=== PATIENT | female | born 1970 | race Caucasian/White ===

== ENCOUNTER 2019-08-16 11:13 | Outpatient (CLI) | payer BC ==
--- NOTE | 2019-08-16 11:45 | RAD ---
EXAM: 4 views of the left elbow HISTORY: Elbow pain COMPARISON: None FINDINGS: No elbow effusion is seen. There is no evidence of acute fracture or dislocation. No signi ficant degenerative changes are seen. No soft tissue swelling is present. IMPRESSION: No evidence of acute osseous abnormality.
--- NOTE | 2019-08-16 11:56 | RAD ---
LEFT FOREARM 2 VIEWS: Date: 08/16/19 HISTORY: Injury and pain. FINDINGS: No fracture. No osseous abnormality. IMPRESSION: Unremarkable left forearm. POS: DWAINE
== END 2019-08-16 11:14 | disposition home or self-care (01) ==
LOC: BICRAD 11:13
PROVIDERS: ATTEND Family Medicine
DX: S50.02XA Contusion of left elbow, initial encounter (principal)

== ENCOUNTER 2019-09-07 14:56 | Outpatient (CLI) | payer BC ==
--- NOTE | 2019-09-07 15:32 | RAD ---
4 views lumbar spine: 09/07/2019 COMPARISON: None HISTORY: Low back pain with right hip/lower extremity radiculopathy FINDINGS: There is disc space narrowing and degenerative endplate change at the L5-S1 level. There is mild anterior osteophyte formation. There is facet hypertrophy bilaterally at L4-5 and L5-S1, right greater than left, most prominent at the lumbosacral junction. Lateral exam demonstrates no significant anterolisthesis on the neutral, flexion, or extension views. No acute osseous abnormality. IMPRESSION: Lower lumbar spine degenerative change as described above. Neutral, flexion, and extensio n lateral imaging demonstrates no anterolisthesis or retrolisthesis within the lumbar spine.
== END 2019-09-07 14:57 | disposition home or self-care (01) ==
LOC: TBSIIMAG 14:56
PROVIDERS: ATTEND Surgery
DX: M54.5 Low back pain (principal); M47.816 Spondylosis without myelopathy or radiculopathy, lumbar region
CPT/HCPCS: 72110

== ENCOUNTER 2019-09-28 16:38 | Outpatient (CLI) | payer BC ==
[2019-09-28 17:42] LABS: Hemoglobin 13.1 g/dL (12.0-16.0); Mean Corpuscular HGB CONC 32.7 g/dL (32.0-36.0); Mean Corpuscular Hemoglobin 28.9 pg (27.0-31.0); Mean Corpuscular Volume 88.3 fL (78.0-98.0); Mean Platelet Volume 7.2 fL (7.4-10.4); Platelet Count 237 thou/uL (130-400); RBC Distribution Width 11.6 % (11.5-14.5); Red Blood Cell (RBC) Count 4.55 mill/uL (4.20-5.40); White Blood Cell (WBC) Count 6.3 thou/uL (4.8-10.8)
[2019-09-28 17:52] LABS: PTT 31.9 SEC (22.9-36.1)
[2019-09-28 18:12] LABS: Anion Gap 9 mmol/L (10-20); BUN (Urea Nitrogen) 11 mg/dL (7.0-18.7); Calc. Creatinine Clearance 0 mL/min (70-130); Calcium 9.5 mg/dL (7.8-10.44); Carbon Dioxide 30 mmol/L (22-29); Chloride 104 mmol/L (98-107); Estimated GFR-MDRD 79; Glucose 89 mg/dL (70-105); Potassium 4.1 mmol/L (3.5-5.1); Sodium 139 mmol/L (136-145)
--- NOTE | 2019-09-30 17:45 | EKG ---
Test Reason : Blood Pressure : / mmHG Vent. Rate : 065 BPM Atrial Rate : 065 BPM P-R Int : 122 ms QRS Dur : 084 ms QT Int : 390 ms P-R-T Axes : 018 064 001 degrees QTc Int : 405 ms Normal sinus rhythm Low voltage QRS Cannot rule out Anterior infarct , age undetermined Abnormal ECG No previous ECGs available Confirmed by Kelvin TORIBIO ([id number]) on 09/30/2019 5:45:14 PM Referred By: MUSA Confirmed By:Kelvin TORIBIO
== END 2019-09-28 16:39 | disposition home or self-care (01) ==
LOC: LABBT 16:38
PROVIDERS: ATTEND Surgery
DX: Z01.812 Encounter for preprocedural laboratory examination (principal); M54.16 Radiculopathy, lumbar region; M48.062 Spinal stenosis, lumbar region with neurogenic claudication
CPT/HCPCS: 80048; 85027; 85610; 85730; 93005; 93010

== ENCOUNTER 2019-09-30 06:08 | Day surgery (SDC) | payer BC ==
[2019-09-28 17:23] VITALS: BMI 24.0
[2019-09-30] MEDS ORDERED: Thrombin 5000 UNITS/5 ML VIAL ONE (06:31)
[2019-09-30] MEDS ORDERED: Sodium Chloride 0.9% 10 ML ONE (06:31)
[2019-09-30] MEDS ORDERED: Fentanyl 250 MCG/5 ML VIAL ONE (06:48)
[2019-09-30] MEDS ORDERED: Midazolam HCl 2 mg/2 ml Vial ONE (07:08)
--- NOTE | 2019-09-30 09:51 | OP ---
DATE OF PROCEDURE: 09/30/2019 LASER SPECIALIST: Dedrick Castillo PA-C. PREPROCEDURE DIAGNOSES: 1. Low back and leg pain with lumbar stenosis. 2. Lumbar disk extrusion. POSTPROCEDURE DIAGNOSES: 1. Low back and leg pain with lumbar stenosis. 2. Lumbar disk extrusion. PROCEDURES PERFORMED: 1. L4-L5 and L5-S1 laminectomies, partial facetectomies, and foraminotomies. 2. Right L5-S1 transfacet approach for decompression of the exiting right L5 nerve root due to lateral and far-lateral disk extrusion. 3. Use of operative microscope for microdissection. DESCRIPTION OF PROCEDURE: After informed consent was obtained from the patient, the patient was brought to the OR. Proper patient, pause, and identification were carried out. She was placed under excellent general endotracheal anesthesia and positioned prone on the OR table. All appropriate points were padded. We identified the L4, L5, S1 dorsal spines and lamina. A linear yamilet was made over this region. This area was sterilely cleansed, prepared, and draped. Proper patient, pause, and identification were carried out. The wound was then opened in a combination of sharp, monopolar, and blunt dissection. The L4, L5, and S1 dorsal spines and lamina were exposed. We then performed localization and L4, L5, and S1 laminectomies, partial facetectomies, and foraminotomies were performed. We then brought the microscope in for a right L5-S1 transfacet approach for decompression of the exiting right L5 nerve root. We used the microscope for microdissection. We had excellent decompression following removal of disk material in the lateral portion of the foramen and copious irrigation occurred throughout as did maximizing hemostasis. The wound was then closed in anatomic layers following sprinkling of vancomycin powder. The patient was emerged from anesthesia. Job ID: [id number]
[2019-09-30] MEDS ORDERED: Glycopyrrolate 0.2 MG/ML 5 ML SYRINGE ONE (10:12)
[2019-09-30] MEDS ORDERED: Ondansetron PF 4 MG/2 ML Vial ONE (10:12)
[2019-09-30] MEDS ORDERED: Lidocaine 1% PF 5 ML VIAL ONE (10:12)
[2019-09-30] MEDS ORDERED: PROPOFOL 200 MG/20 ML VIAL ONE (10:12)
[2019-09-30] MEDS ORDERED: ePHEDrine/0.9% NaCl/PF SYRINGE 50 mg/10 ml ONE (10:12)
[2019-09-30] MEDS ORDERED: Dexamethasone 20 MG/5 ML VIAL ONE (10:12)
[2019-09-30] MEDS ORDERED: Rocuronium Bromide 10 MG/ML (10ML VIAL) ONE (10:12)
[2019-09-30] MEDS ORDERED: Milk Of Magnesia 30 ML UDCUP PO PRN (10:20)
[2019-09-30] MEDS ORDERED: Bisacodyl 10 MG SUPP PR PRN (10:20)
[2019-09-30] MEDS ORDERED: Ondansetron PF 4 MG/2 ML Vial IVP PRN (10:20)
[2019-09-30] MEDS ORDERED: Morphine 2 MG/ML SYRINGE SLOW IVP PRN (10:20)
[2019-09-30] MEDS ORDERED: Mag-Al 1200 mg/1200 mg/30 ML UDCUP PO PRN (10:20)
[2019-09-30] MEDS ORDERED: tiZANidine HCl 4 MG TAB PO PRN (10:20)
[2019-09-30] MEDS ORDERED: Fleet Enema 133 ML BOT PR PRN (10:20)
[2019-09-30] MEDS ORDERED: Acetaminophen 325 MG TAB PO PRN (10:20)
[2019-09-30] MEDS ORDERED: PROVENTIL INHALER 6.7 G (200 INHALATIONS) INH PRN (10:22)
[2019-09-30] MEDS ORDERED: Fentanyl 100 MCG/2 ML VIAL ONE ×2 (10:32→10:49)
[2019-09-30] MEDS ORDERED: Promethazine HCl 25 MG/ML VIAL SLOW IVP PRN (11:01)
[2019-09-30] MEDS ORDERED: Ondansetron HCl/PF 4 MG/2 ML Vial IVP PRN (11:01)
[2019-09-30] MEDS ORDERED: Promethazine HCl 25 MG/ML VIAL IM PRN (11:01)
[2019-09-30] MEDS: Sodium Chloride 0.9% 1,000 ML IV SCH ×2 (12:45→23:33)
[2019-09-30] MEDS: traMADol HCl 50 MG TAB PO PRN ×2 (14:32→20:27)
[2019-09-30] MEDS: CEFAZOLIN 2 GM in Premix Bag 1 BAG IVPB SCH ×2 (14:33→22:31)
[2019-09-30] MEDS ORDERED: Melatonin 3 MG TAB PO SCH (21:00)
[2019-09-30] MEDS ORDERED: Escitalopram Oxalate 10 mg Tablet PO SCH (21:00)
[2019-09-30] MEDS: HYDROcodone/Acetaminophen 7.5/325 mg Tablet PO PRN (22:34)
[2019-10-01] MEDS: traMADol HCl 50 MG TAB PO PRN ×2 (03:38→10:30)
[2019-10-01] MEDS: HYDROcodone/Acetaminophen 7.5/325 mg Tablet PO PRN (05:10)
[2019-10-01 07:39] VITALS: BP 101/65; TEMP 98.2
--- NOTE | 2019-10-02 03:08 | DIS ---
DATE OF ADMISSION: 09/30/2019 DATE OF DISCHARGE: 10/01/2019 The patient is a 49-year-old female, who is postoperative day #1, status post L4-S1 laminectomy and right L5-S1 far-lateral diskectomy. Following the surgery, she was transitioned to the Med/Surg floor. Her pain has been well-controlled with p.o. medications, and she is tolerating a regular diet, and voiding appropriately. She continues to have some right leg discomfort similar to before her surgery. She denies increased pain or new weakness. She is mobilizing appropriately. On exam this morning, the patient is awake, alert, in no acute distress. She has free active range of motion of all extremities. No focal motor weakness is appreciated. Her incision is clean, dry, and intact. We will plan to dismiss the patient to home. I have discussed home care and precautions. Dedrick Castillo has called in prescription for tramadol and Zanaflex to the [facility] in [place]. I have provided a script for gabapentin as well as the patient reports this has been beneficial to her in the past. The patient should follow up with Dr. Busch in 2 weeks. Job ID: [id number]
== END 2019-10-01 11:35 | disposition home or self-care (01) ==
LOC: SDC 06:08 → SURG A 11:59 → SDC 10-01 11:35
PROVIDERS: ATTEND Surgery
PROC: 01NB0ZZ Release Lumbar Nerve, Open Approach (ICD-10-PCS; principal; 2019-09-30)
PROC: 0ST20ZZ Resection of Lumbar Vertebral Disc, Open Approach (ICD-10-PCS; principal; 2019-09-30)
DX: M48.061 Spinal stenosis, lumbar region without neurogenic claudication (principal); M51.16 Intervertebral disc disorders with radiculopathy, lumbar region; J45.909 Unspecified asthma, uncomplicated; F17.200 Nicotine dependence, unspecified, uncomplicated; Z79.899 Other long term (current) drug therapy; Z88.5 Allergy status to narcotic agent
CPT/HCPCS: 76000; J0131; J0690; J1100; J2001; J2250; J2270; J2405; J2704; J3010; J3370; J3490

== ENCOUNTER 2020-09-11 15:57 | Outpatient (CLI) | payer BC ==
--- NOTE | 2020-09-11 16:36 | MMO ---
Bilateral MAMMO Bilat Screen [facility]. CLINICAL HISTORY: Patient is 50 years old and is seen for screening. The patient has no family history of breast cancer. The patient has no personal history of cancer. VIEWS: The views performed were: bilateral craniocaudal with tomosynthesis and bilateral mediolateral oblique with tomosynthesis. FILMS COMPARED: The present examination has been compared to prior imaging studies performed at [facility] on 08/26/2019, and at [facility] on 08/04/2018. This study has been interpreted with the assistance of computer-aided detection. MAMMOGRAM FINDINGS: The breasts are heterogeneously dense, which could obscure a lesion on mammography. There are no suspicious masses, suspicious calcifications, or new areas of architectural distortion. IMPRESSION: THERE IS NO MAMMOGRAPHIC EVIDENCE OF MALIGNANCY. A ROUTINE FOLLOW-UP MAMMOGRAM IN 1 YEAR IS RECOMMENDED. THE RESULTS OF THIS EXAM WERE SENT TO THE PATIENT. ACR BI-RADS Category 1 - Negative MAMMOGRAPHY NOTE: 1. A negative mammogram report should not delay a biopsy if a dominant of clinically suspicious mass is present. 2. Approximately 10% to 15% of breast cancers are not detected by mammography. 3. Adenosis and dense breasts may obscure an underlying neoplasm. Reported by: PARUL CHEW MD Electonically Signed: [id number]
== END 2020-09-11 15:58 | disposition home or self-care (01) ==
LOC: BICMAMMO 15:57
PROVIDERS: ATTEND Physician Assistant
DX: Z12.31 Encounter for screening mammogram for malignant neoplasm of breast (principal)
CPT/HCPCS: 77063; 77067

== ENCOUNTER 2022-04-11 16:12 | Outpatient (CLI) | payer BC | END 2022-04-11 16:13 | disposition home or self-care (01) | LOC: BICMAMMO 16:12 | PROVIDERS: ATTEND Physician Assistant | DX: Z12.31 Encounter for screening mammogram for malignant neoplasm of breast (principal); N63.20 Unspecified lump in the left breast, unspecified quadrant | CPT/HCPCS: 77063; 77067 ==

== ENCOUNTER 2022-04-15 10:32 | Outpatient (CLI) | payer BC | END 2022-04-15 10:33 | disposition home or self-care (01) | LOC: BICMAMMO 10:32 | PROVIDERS: ATTEND Physician Assistant | DX: N63.20 Unspecified lump in the left breast, unspecified quadrant (principal) | CPT/HCPCS: G0279 ==

== ENCOUNTER 2023-01-22 07:36 | Outpatient (CLI) | payer BC | END 2023-01-22 07:37 | disposition home or self-care (01) | LOC: BICULT 07:36 | PROVIDERS: ATTEND Internal Medicine Gastroenterology | DX: R10.13 Epigastric pain (principal); K21.9 Gastro-esophageal reflux disease without esophagitis; F17.210 Nicotine dependence, cigarettes, uncomplicated; F43.9 Reaction to severe stress, unspecified; K76.89 Other specified diseases of liver | CPT/HCPCS: 76705 ==

== ENCOUNTER 2023-02-03 16:28 | Outpatient (CLI) | payer BC | END 2023-02-03 16:29 | disposition home or self-care (01) | LOC: SCSRAD 16:28 | PROVIDERS: ATTEND Physician Assistant | DX: M25.561 Pain in right knee (principal); M25.461 Effusion, right knee ==

== ENCOUNTER 2023-02-13 07:41 | Outpatient (CLI) | payer BC | END 2023-02-13 07:42 | disposition home or self-care (01) | LOC: TBSIIMAG 07:41 | PROVIDERS: ATTEND Physician Assistant | DX: S89.91XD Unspecified injury of right lower leg, subsequent encounter (principal); R93.6 Abnormal findings on diagnostic imaging of limbs; S83.281D Other tear of lateral meniscus, current injury, right knee, subsequent encounter; S83.411D Sprain of medial collateral ligament of right knee, subsequent encounter; S83.421D Sprain of lateral collateral ligament of right knee, subsequent encounter; M25.461 Effusion, right knee; M94.8X6 Other specified disorders of cartilage, lower leg ==

== ENCOUNTER 2023-04-07 09:03 | Outpatient (CLI) | payer BC ==
[2023-04-07 10:21] LABS: #Eosinphils 0.6 10x3/uL (0.0-0.5); #Monocytes 0.5 10x3/uL (0.0-1.1); #Neutrophils 2.9 10x3/uL (1.5-8.4); %Basophils 0.7 % (0.0-2.0); %Eosinophils 11.2 % (0.0-6.0); %Lymphocytes 26.9 % (18.0-47.0); %Monocytes 8.3 % (0.0-10.0); %Neutrophils 52.7 % (40.0-75.0); Mean Corpuscular HGB CONC 32.9 g/dL (32.0-36.0); Mean Corpuscular Hemoglobin 28.5 pg (27.0-33.0); Mean Corpuscular Volume 86.7 fl (81.6-98.3); Platelet Count 262 10x3/uL (150-450); RBC Distribution Width 13.3 % (11.5-14.5); Red Blood Cell (RBC) Count 4.21 10x6/uL (3.90-5.03); White Blood Cell (WBC) Count 5.4 10x3/uL (3.5-10.5)
[2023-04-07 10:59] LABS: Anion Gap 15 mmol/L (10-20); BUN (Urea Nitrogen) 9 mg/dL (7.0-18.7); Calc. Creatinine Clearance 0 mL/min (70-130); Calcium 9.3 mg/dL (7.8-10.44); Carbon Dioxide 24 mmol/L (22-29); Chloride 108 mmol/L (98-107); Estimated GFR 99; Glucose 106 mg/dL (70-105); Potassium 3.6 mmol/L (3.5-5.1); Sodium 143 mmol/L (136-145)
== END 2023-04-07 09:04 | disposition home or self-care (01) ==
LOC: LABBT 09:03
PROVIDERS: ATTEND Orthopaedic Surgery
DX: Z01.818 Encounter for other preprocedural examination (principal); M23.203 Derangement of unspecified medial meniscus due to old tear or injury, right knee
CPT/HCPCS: 71046; 80048; 85025; 93005; 93010

== ENCOUNTER 2023-04-10 07:25 | Day surgery (SDC) | payer BC ==
[2023-04-07 09:34] VITALS: BMI 24.7
[2023-04-10] MEDS ORDERED: PROPOFOL 20 ML ONE (08:04)
[2023-04-10] MEDS ORDERED: Bupivacaine PF 0.5% 30 ML VIAL ONE (08:04)
[2023-04-10] MEDS ORDERED: Lidocaine 2% PF 5 ML VIAL ONE (08:04)
[2023-04-10] MEDS ORDERED: CEFAZOLIN 2 GM VIAL ONE (08:10)
[2023-04-10] MEDS ORDERED: Sodium Chloride 0.9% 100 ML ONE (08:10)
[2023-04-10] MEDS ORDERED: Ketorolac Tromethamine 30 MG/ML VIAL ONE (09:00)
[2023-04-10] MEDS ORDERED: Bupivacaine HCl 0.5%/Epinephrine 1:200,000/PF 30 ml Vial ONE (09:00)
[2023-04-10] MEDS ORDERED: Lidocaine 1% PF 5 ML VIAL ONE (09:00)
[2023-04-10] MEDS ORDERED: PROPOFOL 200 MG/20 ML VIAL ONE (09:00)
[2023-04-10] MEDS ORDERED: Ondansetron PF 4 MG/2 ML Vial ONE (09:00)
[2023-04-10] MEDS ORDERED: Dexamethasone 20 MG/5 ML VIAL ONE (09:00)
== END 2023-04-10 11:15 | disposition home or self-care (01) ==
LOC: SDC 07:25
PROVIDERS: ATTEND Orthopaedic Surgery
PROC: 0SBC4ZZ Excision of Right Knee Joint, Percutaneous Endoscopic Approach (ICD-10-PCS; principal; 2023-04-10)
DX: S83.281A Other tear of lateral meniscus, current injury, right knee, initial encounter (principal); M17.11 Unilateral primary osteoarthritis, right knee; J45.909 Unspecified asthma, uncomplicated; K21.9 Gastro-esophageal reflux disease without esophagitis; M19.90 Unspecified osteoarthritis, unspecified site; F32.A Depression, unspecified; F41.1 Generalized anxiety disorder; Z90.710 Acquired absence of both cervix and uterus; F17.210 Nicotine dependence, cigarettes, uncomplicated; Z88.5 Allergy status to narcotic agent; Z79.899 Other long term (current) drug therapy; X58.XXXA Exposure to other specified factors, initial encounter
CPT/HCPCS: J1100; J1885; J2001; J2405; J2704; J3490; S0020

== ENCOUNTER 2023-10-08 12:00 | Day surgery (SDC) | payer BC ==
[2023-10-07 17:24] VITALS: BMI 24.8
[2023-10-08 14:17] LABS: #Eosinphils 0.5 thou/uL (0.0-0.7); #Monocytes 0.5 thou/uL (0.11-0.59); #Neutrophils 3.5 thou/uL (1.40-6.50); %Basophils 0.5 % (0.0-1.0); %Eosinophils 7.2 % (0.0-10.0); %Lymphocytes 32.3 % (21.0-51.0); %Monocytes 7.8 % (0.0-10.0); Hematocrit 40.2 % (36.0-47.0); Hemoglobin 13.4 g/dL (12.0-16.0); Mean Corpuscular HGB CONC 33.3 g/dL (32.0-36.0); Mean Corpuscular Hemoglobin 29.6 pg (27.0-31.0); Mean Corpuscular Volume 88.7 fl (78.0-98.0); Mean Platelet Volume 10.5 fL (7.4-10.4); Platelet Count 291 10x3/uL (130-400); RBC Distribution Width 12.4 % (11.5-14.5); Red Blood Cell (RBC) Count 4.53 mill/uL (4.20-5.40); White Blood Cell (WBC) Count 6.7 10x3/uL (4.8-10.8)
[2023-10-08] MEDS ORDERED: fentaNYL 50 mcg/mL 1 mL Vial ONE ×2 (14:30→17:11)
[2023-10-08 14:40] LABS: ALT (SGPT) 9 U/L (8-55); AST (SGOT) 15 U/L (5-34); Albumin 4.4 g/dL (3.5-5.0); Alkaline Phosphatase 65 U/L (40-110); Anion Gap 12 mmol/L (10-20); BUN (Urea Nitrogen) 10 mg/dL (9.8-20.1); Bilirubin, Total 0.5 mg/dL (0.2-1.2); Calc. Creatinine Clearance 87 mL/min (70-130); Calcium 9.8 mg/dL (7.8-10.44); Carbon Dioxide 26 mmol/L (22-29); Chloride 107 mmol/L (98-107); Estimated GFR 93; Glucose 85 mg/dL (70-105); Protein, Total 7.4 g/dL (6.0-8.3); Sodium 141 mmol/L (136-145)
[2023-10-08] MEDS ORDERED: Bupivacaine 0.25% HCL 30 ML VIAL ONE (15:39)
[2023-10-08] MEDS ORDERED: EPINEPHrine 1 MG/ML VIAL ONE (15:39)
[2023-10-08] MEDS ORDERED: Lidocaine 1% PF 5 ML VIAL ONE ×2 (15:46→16:18)
[2023-10-08] MEDS ORDERED: Rocuronium Bromide 10 MG/ML (10ML VIAL) ONE ×3 (15:46→16:18)
[2023-10-08] MEDS ORDERED: Succinylcholine 200 MG/10 ml SYRINGE FS ONE ×2 (15:46→16:18)
[2023-10-08] MEDS ORDERED: fentaNYL PF 100 MCG/2 ML SYRINGE ONE (15:47)
[2023-10-08] MEDS ORDERED: Sodium Chloride 0.9% 100 ML ONE (15:58)
[2023-10-08] MEDS ORDERED: cefOXitin 2 GM VIAL ONE (15:58)
[2023-10-08] MEDS ORDERED: PROPOFOL 200 MG/20 ML VIAL ONE (16:18)
[2023-10-08] MEDS ORDERED: Ondansetron PF 4 MG/2 ML Vial ONE ×2 (16:18→16:35)
[2023-10-08] MEDS ORDERED: SUGAMMADEX SODIUM 200 MG/2 ML VIAL ONE (16:35)
[2023-10-08] MEDS ORDERED: Dexamethasone 4 mg/ml Vial ONE (16:36)
[2023-10-08] MEDS ORDERED: HYDROmorphone 0.5 MG/0.5 ML SYRINGE ONE (17:23)
[2023-10-08] MEDS ORDERED: HYDROcodone/Acetaminophen 5/325 mg Tablet ONE (17:55)
== END 2023-10-08 18:35 | disposition home or self-care (01) ==
LOC: SDC 12:00
PROVIDERS: ATTEND Surgery
PROC: 0DTJ4ZZ Resection of Appendix, Percutaneous Endoscopic Approach (ICD-10-PCS; principal; 2023-10-08)
DX: C18.1 Malignant neoplasm of appendix (principal); K35.80 Unspecified acute appendicitis; F17.210 Nicotine dependence, cigarettes, uncomplicated; Z79.899 Other long term (current) drug therapy
CPT/HCPCS: 36415; 71046; 80053; 85025; 88304; A4649; J0171; J0694; J1100; J1170; J2405; J2704; J3010; J3490; S0020

== ENCOUNTER 2023-10-10 18:54 | Emergency (ER) | payer BC ==
[~2023-10-10 18:54] MED LIST: Iopamidol 370 76% 100 ML VIAL ONE
[2023-10-10 19:40] LABS: #Basophils 0.1 thou/uL (0.0-0.2); #Eosinphils 0.5 thou/uL (0.0-0.7); #Monocytes 0.7 thou/uL (0.11-0.59); #Neutrophils 8.6 thou/uL (1.40-6.50); %Basophils 0.4 % (0.0-1.0); %Eosinophils 4.2 % (0.0-10.0); %Lymphocytes 20.7 % (21.0-51.0); %Monocytes 5.5 % (0.0-10.0); %Neutrophils 68.8 % (42.0-75.0); Hemoglobin 13.1 g/dL (12.0-16.0); Mean Corpuscular HGB CONC 33.6 g/dL (32.0-36.0); Mean Corpuscular Hemoglobin 29.6 pg (27.0-31.0); Mean Corpuscular Volume 88.2 fl (78.0-98.0); Mean Platelet Volume 10.4 fL (7.4-10.4); Platelet Count 286 10x3/uL (130-400); RBC Distribution Width 12.3 % (11.5-14.5); Red Blood Cell (RBC) Count 4.42 mill/uL (4.20-5.40); White Blood Cell (WBC) Count 12.6 10x3/uL (4.8-10.8)
[2023-10-10] MEDS ORDERED: Morphine 4 MG/ML VIAL ONE ×2 (19:43→20:26)
[2023-10-10] MEDS ORDERED: Ondansetron PF 4 MG/2 ML Vial ONE (19:43)
[2023-10-10 20:11] LABS: ALT (SGPT) 12 U/L (8-55); AST (SGOT) 19 U/L (5-34); Albumin 4.3 g/dL (3.5-5.0); Alkaline Phosphatase 61 U/L (40-110); Anion Gap 14 mmol/L (10-20); BUN (Urea Nitrogen) 12 mg/dL (9.8-20.1); Bilirubin, Total 0.3 mg/dL (0.2-1.2); Calc. Creatinine Clearance 0 mL/min (70-130); Calcium 9.8 mg/dL (7.8-10.44); Carbon Dioxide 27 mmol/L (22-29); Chloride 103 mmol/L (98-107); Estimated GFR 93; Globulin 2.8 g/dL (2.4-3.5); Glucose 107 mg/dL (70-105); Potassium 3.4 mmol/L (3.5-5.1); Protein, Total 7.1 g/dL (6.0-8.3); Sodium 141 mmol/L (136-145)
[2023-10-10] MEDS ORDERED: fentaNYL 50 mcg/mL 1 mL Vial ONE (20:29)
[2023-10-12] MEDS ORDERED: Ondansetron PF 4 MG/2 ML Vial IVP PRN (14:05)
[2023-10-12] MEDS ORDERED: Morphine 2 MG/ML VIAL SLOW IVP PRN (14:05)
[2023-10-12] MEDS ORDERED: Promethazine HCl 25 MG/ML VIAL IM PRN (14:05)
[2023-10-12] MEDS ORDERED: Morphine 4 MG/ML VIAL SLOW IVP PRN (14:05)
[2023-10-12] MEDS ORDERED: Ipratropium/Albuterol 3 ML NEB NEB PRN (14:05)
[2023-10-12] MEDS ORDERED: hydrALAZINE 20 MG/ML VIAL SLOW IVP PRN (14:05)
[2023-10-12] MEDS ORDERED: Fleet Saline Enema 133 ML BOT PR SCH (14:15)
[2023-10-12] MEDS ORDERED: Sodium Chloride 0.9% 1,000 ML IV SCH (14:15)
[2023-10-12] MEDS ORDERED: Ketorolac Tromethamine 30 MG/ML VIAL IVP SCH (18:00)
[2023-10-12] MEDS ORDERED: Famotidine/PF 20 mg/2ml Vial SLOW IVP SCH (21:00)
[2023-10-12] MEDS ORDERED: Famotidine 20 MG TAB PO SCH (21:00)
== END 2023-10-10 22:12 | disposition home or self-care (01) ==
LOC: ERS 18:54
DX: G89.18 Other acute postprocedural pain (principal); K59.00 Constipation, unspecified; F17.210 Nicotine dependence, cigarettes, uncomplicated
CPT/HCPCS: 36415; 74177; 80053; 83690; 85025; 93005; 96374; 96375; J2270; J2405; J3010; Q9967

== ENCOUNTER 2023-10-12 15:02 | Inpatient (IN) | payer BC ==
[2023-10-12 16:58] VITALS: BMI 24.0
[2023-10-12] MEDS ORDERED: Sodium Chloride 0.9% 500 ML IV SCH (17:30)
[2023-10-12] MEDS: Ketorolac Tromethamine 30 MG (1 mL) VIAL IVP PRN (18:13)
[2023-10-12] MEDS: D5 1/2 NS w/20 mEq KCL 1,000 ML IV SCH (18:14)
[2023-10-12] MEDS ORDERED: Fleet Saline Enema 133 ML BOT PR SCH (21:00)
[2023-10-13] MEDS: D5 1/2 NS w/20 mEq KCL 1,000 ML IV SCH ×4 (01:51→19:55)
[2023-10-13] MEDS: Ketorolac Tromethamine 30 MG (1 mL) VIAL IVP PRN ×3 (03:21→14:59)
[2023-10-13] MEDS: Ondansetron PF 4 MG/2 ML Vial IVP PRN ×3 (09:15→19:53)
[2023-10-13 12:23] LABS: #Eosinphils 0.1 thou/uL (0.0-0.7); #Monocytes 0.9 thou/uL (0.11-0.59); #Neutrophils 10.9 thou/uL (1.40-6.50); %Basophils 0.1 % (0.0-1.0); %Eosinophils 0.8 % (0.0-10.0); %Lymphocytes 9.1 % (21.0-51.0); %Neutrophils 82.6 % (42.0-75.0); Hematocrit 35.4 % (36.0-47.0); Hemoglobin 11.9 g/dL (12.0-16.0); Mean Corpuscular HGB CONC 33.6 g/dL (32.0-36.0); Mean Corpuscular Hemoglobin 29.5 pg (27.0-31.0); Mean Corpuscular Volume 87.8 fl (78.0-98.0); Mean Platelet Volume 10.8 fL (7.4-10.4); Platelet Count 263 10x3/uL (130-400); RBC Distribution Width 12.7 % (11.5-14.5); Red Blood Cell (RBC) Count 4.03 mill/uL (4.20-5.40); White Blood Cell (WBC) Count 13.1 10x3/uL (4.8-10.8)
[2023-10-13 12:59] LABS: ALT (SGPT) 10 U/L (8-55); AST (SGOT) 14 U/L (5-34); Albumin 3.3 g/dL (3.5-5.0); Alkaline Phosphatase 55 U/L (40-110); Anion Gap 10 mmol/L (10-20); BUN (Urea Nitrogen) 20 mg/dL (9.8-20.1); Bilirubin, Total 0.5 mg/dL (0.2-1.2); Calc. Creatinine Clearance 89 mL/min (70-130); Carbon Dioxide 29 mmol/L (22-29); Chloride 101 mmol/L (98-107); Estimated GFR 96; Globulin 2.7 g/dL (2.4-3.5); Glucose 128 mg/dL (70-105); Potassium 3.3 mmol/L (3.5-5.1); Sodium 137 mmol/L (136-145)
[2023-10-14] MEDS: Ketorolac Tromethamine 30 MG (1 mL) VIAL IVP PRN ×3 (02:28→20:08)
[2023-10-14] MEDS: D5 1/2 NS w/20 mEq KCL 1,000 ML IV SCH ×3 (02:30→21:58)
[2023-10-14] MEDS ORDERED: Promethazine HCl 25 MG in Sodium Chloride 0.9% 50 ML IVPB PRN (07:26)
[2023-10-14] MEDS ORDERED: GoLYTELY 4,000 ml Bottle PO SCH (07:30)
[2023-10-14] MEDS: Ondansetron PF 4 MG/2 ML Vial IVP PRN (09:51)
[2023-10-14] MEDS ORDERED: Bupivacaine 0.25% HCL 30 ML VIAL ONE (17:00)
[2023-10-15] MEDS: Ketorolac Tromethamine 30 MG (1 mL) VIAL IVP PRN ×2 (03:12→07:45)
[2023-10-15] MEDS: D5 1/2 NS w/20 mEq KCL 1,000 ML IV SCH ×2 (05:23→09:00)
[2023-10-15] MEDS: Ondansetron PF 4 MG/2 ML Vial IVP PRN (07:45)
[2023-10-15] MEDS ORDERED: cefOXitin 2 GM in Sodium Chloride 0.9% 100 ML IVPB SCH (07:45)
[2023-10-15] MEDS ORDERED: PROPOFOL 20 ML ONE (15:05)
[2023-10-15] MEDS ORDERED: fentaNYL PF 100 MCG/2 ML SYRINGE ONE ×3 (15:05→17:39)
[2023-10-15] MEDS ORDERED: Lidocaine 2% PF 5 ML VIAL ONE (15:05)
[2023-10-15] MEDS ORDERED: Rocuronium Bromide 10 MG/ML (10ML VIAL) ONE (15:05)
[2023-10-15] MEDS ORDERED: PHENYLEPHRINE-NS 100 MCG/ML 10 ML SYRINGE ONE (15:06)
[2023-10-15] MEDS ORDERED: Succinylcholine 200 MG/10 ml SYRINGE FS ONE (15:06)
[2023-10-15] MEDS ORDERED: HYDROmorphone 0.5 MG/0.5 ML SYRINGE ONE ×3 (15:13→18:24)
[2023-10-15] MEDS ORDERED: Bupivacaine PF 0.5% 30 ML VIAL ONE (15:13)
[2023-10-15] MEDS ORDERED: Sodium Chloride 0.9% 100 ML ONE (15:20)
[2023-10-15] MEDS ORDERED: cefOXitin 2 GM VIAL ONE (15:20)
[2023-10-15] MEDS ORDERED: Ondansetron PF 4 MG/2 ML Vial ONE (16:05)
[2023-10-15] MEDS ORDERED: Dexamethasone 20 MG/5 ML VIAL ONE (16:05)
[2023-10-15] MEDS ORDERED: Glycopyrrolate 0.2 MG/ML 5 ML SYRINGE ONE (16:38)
[2023-10-15] MEDS ORDERED: NEOSTIGMINE 3 MG/3 ML SYR 3 MG/3 ML SYRINGE ONE (16:38)
[2023-10-15] MEDS ORDERED: hydrALAZINE 20 MG/ML VIAL SLOW IVP PRN (17:15)
[2023-10-15] MEDS ORDERED: Promethazine HCl 25 MG/ML VIAL IM PRN ×3 (17:15→17:24)
[2023-10-15] MEDS ORDERED: Ondansetron PF 4 MG/2 ML Vial IVP PRN ×2 (17:15→17:24)
[2023-10-15] MEDS ORDERED: Ipratropium/Albuterol 3 ML NEB NEB PRN (17:15)
[2023-10-15] MEDS ORDERED: Ondansetron HCl/PF 4 MG/2 ML Vial IVP PRN (17:24)
[2023-10-15] MEDS ORDERED: diphenhydrAMINE 50 MG/ML VIAL IVP PRN (17:24)
[2023-10-15] MEDS ORDERED: Naloxone HCl 0.4 mg/ml Vial IV PRN (17:24)
[2023-10-15] MEDS ORDERED: diphenhydrAMINE 25 MG CAP PO PRN (17:24)
[2023-10-15] MEDS ORDERED: diphenhydrAMINE 50 MG/ML VIAL IM PRN (17:24)
[2023-10-15] MEDS ORDERED: fentaNYL 50 mcg/mL 1 mL Vial ONE ×2 (17:25→18:37)
[2023-10-15] MEDS ORDERED: Communication Order-Pharmacy FS SCH (17:30)
[2023-10-15] MEDS: Sodium Chloride 0.9% 1,000 ML IV SCH (18:11)
[2023-10-15] MEDS ORDERED: Ketorolac Tromethamine 30 MG (1 mL) VIAL ONE (18:24)
[2023-10-15] MEDS: Famotidine/PF 20 mg/2ml Vial SLOW IVP SCH (19:56)
[2023-10-15] MEDS: Famotidine 20 MG TAB PO SCH (19:59)
[2023-10-15] MEDS: cefOXitin 2 GM in Sodium Chloride 0.9% 100 ML IVPB SCH (22:52)
[2023-10-16] MEDS: D5 1/2 NS w/20 mEq KCL 1,000 ML IV SCH ×3 (01:34→16:38)
[2023-10-16] MEDS: Sodium Chloride 0.9% 1,000 ML IV SCH ×3 (02:20→18:39)
[2023-10-16] MEDS: cefOXitin 2 GM in Sodium Chloride 0.9% 100 ML IVPB SCH (05:52)
[2023-10-16 06:02] LABS: #Monocytes 0.9 thou/uL (0.11-0.59); #Neutrophils 5.9 thou/uL (1.40-6.50); %Basophils 0.1 % (0.0-1.0); %Lymphocytes 11.5 % (21.0-51.0); %Monocytes 11.3 % (0.0-10.0); %Neutrophils 76.6 % (42.0-75.0); Hematocrit 32.7 % (36.0-47.0); Hemoglobin 10.7 g/dL (12.0-16.0); Mean Corpuscular HGB CONC 32.7 g/dL (32.0-36.0); Mean Corpuscular Hemoglobin 29.8 pg (27.0-31.0); Mean Corpuscular Volume 91.1 fl (78.0-98.0); Mean Platelet Volume 10.5 fL (7.4-10.4); Platelet Count 279 10x3/uL (130-400); RBC Distribution Width 12.3 % (11.5-14.5); Red Blood Cell (RBC) Count 3.59 mill/uL (4.20-5.40); White Blood Cell (WBC) Count 7.7 10x3/uL (4.8-10.8)
[2023-10-16 06:23] LABS: Anion Gap 12 mmol/L (10-20); BUN (Urea Nitrogen) 9 mg/dL (9.8-20.1); Calc. Creatinine Clearance 117 mL/min (70-130); Calcium 8.3 mg/dL (7.8-10.44); Carbon Dioxide 21 mmol/L (22-29); Chloride 107 mmol/L (98-107); Estimated GFR 110; Glucose 103 mg/dL (70-105); Potassium 4.2 mmol/L (3.5-5.1); Sodium 136 mmol/L (136-145)
[2023-10-16] MEDS: Famotidine 20 MG TAB PO SCH ×2 (08:35→21:21)
[2023-10-16] MEDS: Famotidine/PF 20 mg/2ml Vial SLOW IVP SCH ×2 (08:38→21:19)
[2023-10-16] MEDS: Ketorolac Tromethamine 30 MG (1 mL) VIAL IVP PRN ×2 (13:03→18:39)
[2023-10-16] MEDS: FENTANYL 500 MCG/10 ML VIAL 2,000 MCG in Sodium Chloride 0.9% 60 ML IV PRN (13:43)
[2023-10-16] MEDS: Multivitamins, Adult 10 ML, TRACE ELEMENT CONCENTRATE 1 ML in D15W-AA 5% with Lytes 2,0... IV SCH (14:26)
[2023-10-17] MEDS: Ketorolac Tromethamine 30 MG (1 mL) VIAL IVP PRN ×3 (02:44→21:13)
[2023-10-17] MEDS: Sodium Chloride 0.9% 1,000 ML IV SCH ×2 (02:45→10:43)
[2023-10-17] MEDS: D5 1/2 NS w/20 mEq KCL 1,000 ML IV SCH ×2 (02:50→08:34)
[2023-10-17 07:18] LABS: #Eosinphils 0.3 thou/uL (0.0-0.7); #Monocytes 0.7 thou/uL (0.11-0.59); #Neutrophils 4.5 thou/uL (1.40-6.50); %Basophils 0.1 % (0.0-1.0); %Eosinophils 4.4 % (0.0-10.0); %Lymphocytes 18.6 % (21.0-51.0); %Monocytes 10.4 % (0.0-10.0); %Neutrophils 65.9 % (42.0-75.0); Hematocrit 27.6 % (36.0-47.0); Hemoglobin 9.3 g/dL (12.0-16.0); Mean Corpuscular HGB CONC 33.7 g/dL (32.0-36.0); Mean Corpuscular Hemoglobin 30.1 pg (27.0-31.0); Mean Corpuscular Volume 89.3 fl (78.0-98.0); Mean Platelet Volume 10.7 fL (7.4-10.4); Platelet Count 257 10x3/uL (130-400); RBC Distribution Width 12.6 % (11.5-14.5); Red Blood Cell (RBC) Count 3.09 mill/uL (4.20-5.40); White Blood Cell (WBC) Count 6.8 10x3/uL (4.8-10.8)
[2023-10-17 07:38] LABS: ALT (SGPT) 12 U/L (8-55); AST (SGOT) 18 U/L (5-34); Albumin 2.6 g/dL (3.5-5.0); Alkaline Phosphatase 39 U/L (40-110); Anion Gap 11 mmol/L (10-20); BUN (Urea Nitrogen) 10 mg/dL (9.8-20.1); Bilirubin, Total 0.5 mg/dL (0.2-1.2); Calc. Creatinine Clearance 121 mL/min (70-130); Carbon Dioxide 23 mmol/L (22-29); Chloride 105 mmol/L (98-107); Estimated GFR 111; Globulin 2.5 g/dL (2.4-3.5); Glucose 125 mg/dL (70-105); Potassium 3.4 mmol/L (3.5-5.1); Protein, Total 5.1 g/dL (6.0-8.3); Sodium 136 mmol/L (136-145)
[2023-10-17] MEDS: Famotidine 20 MG TAB PO SCH ×2 (08:34→21:17)
[2023-10-17] MEDS: Famotidine/PF 20 mg/2ml Vial SLOW IVP SCH ×2 (08:37→21:13)
[2023-10-17] MEDS: Multivitamins, Adult 10 ML, TRACE ELEMENT CONCENTRATE 1 ML in D15W-AA 5% with Lytes 2,0... IV SCH (16:23)
[2023-10-18] MEDS: FENTANYL 500 MCG/10 ML VIAL 2,000 MCG in Sodium Chloride 0.9% 60 ML IV PRN ×2 (00:12→23:56)
[2023-10-18] MEDS: Sodium Chloride 0.9% 1,000 ML IV SCH ×4 (03:30→20:03)
[2023-10-18 06:49] LABS: #Eosinphils 0.4 thou/uL (0.0-0.7); #Monocytes 0.6 thou/uL (0.11-0.59); #Neutrophils 6.7 thou/uL (1.40-6.50); %Basophils 0.1 % (0.0-1.0); %Eosinophils 4.7 % (0.0-10.0); %Monocytes 6.5 % (0.0-10.0); Hematocrit 31.7 % (36.0-47.0); Hemoglobin 10.6 g/dL (12.0-16.0); Mean Corpuscular HGB CONC 33.4 g/dL (32.0-36.0); Mean Corpuscular Hemoglobin 29.6 pg (27.0-31.0); Mean Corpuscular Volume 88.5 fl (78.0-98.0); Mean Platelet Volume 10.8 fL (7.4-10.4); Platelet Count 342 10x3/uL (130-400); RBC Distribution Width 12.5 % (11.5-14.5); Red Blood Cell (RBC) Count 3.58 mill/uL (4.20-5.40)
[2023-10-18 07:14] LABS: Anion Gap 12 mmol/L (10-20); BUN (Urea Nitrogen) 10 mg/dL (9.8-20.1); Calc. Creatinine Clearance 124 mL/min (70-130); Calcium 8.8 mg/dL (7.8-10.44); Carbon Dioxide 24 mmol/L (22-29); Cardiac Risk 5.6 (Less than 4.5); Chloride 103 mmol/L (98-107); Cholesterol 139 mg/dl (< 200 Desired); Estimated GFR 111; Glucose 117 mg/dL (70-105); HDL Cholesterol 25 mg/dL (>60 Neg Risk); LDL Cholesterol, Calculated 89 mg/dL; Magnesium 1.8 mg/dL (1.6-2.6); Phosphorus 3.5 mg/dL (2.3-4.7); Potassium 3.6 mmol/L (3.5-5.1); Sodium 135 mmol/L (136-145); Triglycerides 123 mg/dL (Less than 150)
[2023-10-18] MEDS: Famotidine/PF 20 mg/2ml Vial SLOW IVP SCH ×2 (08:10→20:02)
[2023-10-18] MEDS: Famotidine 20 MG TAB PO SCH ×2 (08:10→20:11)
[2023-10-18] MEDS: Ketorolac Tromethamine 30 MG (1 mL) VIAL IVP PRN ×3 (08:10→20:02)
[2023-10-18] MEDS: Multivitamins, Adult 10 ML, TRACE ELEMENT CONCENTRATE 1 ML in D15W-AA 5% with Lytes 2,0... IV SCH (14:39)
[2023-10-19] MEDS: Ketorolac Tromethamine 30 MG (1 mL) VIAL IVP PRN ×4 (02:21→20:23)
[2023-10-19 04:41] LABS: #Eosinphils 0.5 thou/uL (0.0-0.7); #Monocytes 0.8 thou/uL (0.11-0.59); #Neutrophils 5.8 thou/uL (1.40-6.50); %Basophils 0.2 % (0.0-1.0); %Eosinophils 5.6 % (0.0-10.0); %Monocytes 9.2 % (0.0-10.0); %Neutrophils 67.5 % (42.0-75.0); Hematocrit 30.6 % (36.0-47.0); Hemoglobin 10.5 g/dL (12.0-16.0); Mean Corpuscular HGB CONC 34.3 g/dL (32.0-36.0); Mean Corpuscular Hemoglobin 30.3 pg (27.0-31.0); Mean Corpuscular Volume 88.2 fl (78.0-98.0); Mean Platelet Volume 10.5 fL (7.4-10.4); Platelet Count 359 10x3/uL (130-400); RBC Distribution Width 12.5 % (11.5-14.5); Red Blood Cell (RBC) Count 3.47 mill/uL (4.20-5.40); White Blood Cell (WBC) Count 8.5 10x3/uL (4.8-10.8)
[2023-10-19 05:20] LABS: Phosphorus 3.7 mg/dL (2.3-4.7)
[2023-10-19 05:22] LABS: Anion Gap 12 mmol/L (10-20); BUN (Urea Nitrogen) 12 mg/dL (9.8-20.1); Calc. Creatinine Clearance 119 mL/min (70-130); Calcium 8.8 mg/dL (7.8-10.44); Carbon Dioxide 23 mmol/L (22-29); Chloride 104 mmol/L (98-107); Estimated GFR 110; Glucose 93 mg/dL (70-105); Magnesium 1.9 mg/dL (1.6-2.6); Potassium 3.7 mmol/L (3.5-5.1); Sodium 135 mmol/L (136-145)
[2023-10-19] MEDS: Sodium Chloride 0.9% 1,000 ML IV SCH ×2 (05:36→12:54)
[2023-10-19] MEDS: Famotidine/PF 20 mg/2ml Vial SLOW IVP SCH ×2 (08:10→20:23)
[2023-10-19] MEDS: Famotidine 20 MG TAB PO SCH (08:11)
[2023-10-19] MEDS: Multivitamins, Adult 10 ML, TRACE ELEMENT CONCENTRATE 1 ML in D15W-AA 5% with Lytes 2,0... IV SCH (16:39)
[2023-10-19] MEDS: FENTANYL 500 MCG/10 ML VIAL 2,000 MCG in Sodium Chloride 0.9% 60 ML IV PRN (20:23)
[2023-10-20] MEDS: Famotidine 20 MG TAB PO SCH ×3 (01:46→20:08)
[2023-10-20] MEDS: Sodium Chloride 0.9% 1,000 ML IV SCH ×3 (01:47→15:06)
[2023-10-20] MEDS: Ketorolac Tromethamine 30 MG (1 mL) VIAL IVP PRN ×2 (03:03→16:18)
[2023-10-20] MEDS: Ondansetron PF 4 MG/2 ML Vial IVP PRN (03:04)
[2023-10-20 07:07] LABS: #Eosinphils 0.5 thou/uL (0.0-0.7); #Monocytes 1.1 thou/uL (0.11-0.59); #Neutrophils 5.4 thou/uL (1.40-6.50); %Basophils 0.2 % (0.0-1.0); %Eosinophils 5.6 % (0.0-10.0); %Lymphocytes 18.6 % (21.0-51.0); %Monocytes 12.4 % (0.0-10.0); %Neutrophils 62.7 % (42.0-75.0); Mean Corpuscular HGB CONC 33.3 g/dL (32.0-36.0); Mean Corpuscular Hemoglobin 29.5 pg (27.0-31.0); Mean Corpuscular Volume 88.5 fl (78.0-98.0); Mean Platelet Volume 10.6 fL (7.4-10.4); Platelet Count 394 10x3/uL (130-400); RBC Distribution Width 12.4 % (11.5-14.5); Red Blood Cell (RBC) Count 3.39 mill/uL (4.20-5.40); White Blood Cell (WBC) Count 8.6 10x3/uL (4.8-10.8)
[2023-10-20 07:28] LABS: Phosphorus 3.9 mg/dL (2.3-4.7)
[2023-10-20 07:29] LABS: Anion Gap 11 mmol/L (10-20); BUN (Urea Nitrogen) 12 mg/dL (9.8-20.1); Calc. Creatinine Clearance 121 mL/min (70-130); Calcium 8.5 mg/dL (7.8-10.44); Carbon Dioxide 23 mmol/L (22-29); Chloride 105 mmol/L (98-107); Estimated GFR 111; Glucose 93 mg/dL (70-105); Magnesium 1.9 mg/dL (1.6-2.6); Potassium 4.1 mmol/L (3.5-5.1); Sodium 135 mmol/L (136-145)
[2023-10-20] MEDS: Famotidine/PF 20 mg/2ml Vial SLOW IVP SCH ×2 (08:51→20:08)
[2023-10-20] MEDS ORDERED: traMADol HCl 50 MG TAB PO PRN (09:14)
[2023-10-20] MEDS ORDERED: Fentanyl 100 MCG/2 ML VIAL SLOW IVP PRN (09:14)
[2023-10-20] MEDS: traMADol HCl 50 MG TAB PO PRN ×2 (10:49→18:37)
[2023-10-20] MEDS: fentaNYL 50 mcg/mL 1 mL Vial SLOW IVP PRN ×2 (13:19→20:08)
[2023-10-20] MEDS: Multivitamins, Adult 10 ML, TRACE ELEMENT CONCENTRATE 1 ML in D15W-AA 5% with Lytes 2,0... IV SCH (14:18)
[2023-10-21] MEDS: traMADol HCl 50 MG TAB PO PRN ×3 (00:09→15:50)
[2023-10-21] MEDS: fentaNYL 50 mcg/mL 1 mL Vial SLOW IVP PRN ×3 (00:13→10:21)
[2023-10-21] MEDS: Sodium Chloride 0.9% 1,000 ML IV SCH ×4 (02:45→22:38)
[2023-10-21 06:19] LABS: #Eosinphils 0.4 thou/uL (0.0-0.7); #Monocytes 1.4 thou/uL (0.11-0.59); #Neutrophils 5.3 thou/uL (1.40-6.50); %Basophils 0.2 % (0.0-1.0); %Eosinophils 4.1 % (0.0-10.0); %Lymphocytes 20.2 % (21.0-51.0); %Neutrophils 59.1 % (42.0-75.0); Hematocrit 22.7 % (36.0-47.0); Hemoglobin 7.6 g/dL (12.0-16.0); Mean Corpuscular HGB CONC 33.5 g/dL (32.0-36.0); Mean Corpuscular Hemoglobin 29.8 pg (27.0-31.0); Mean Platelet Volume 10.7 fL (7.4-10.4); Platelet Count 480 10x3/uL (130-400); RBC Distribution Width 12.7 % (11.5-14.5); Red Blood Cell (RBC) Count 2.55 mill/uL (4.20-5.40)
[2023-10-21 06:40] LABS: Anion Gap 11 mmol/L (10-20); BUN (Urea Nitrogen) 12 mg/dL (9.8-20.1); Calc. Creatinine Clearance 126 mL/min (70-130); Calcium 8.6 mg/dL (7.8-10.44); Carbon Dioxide 24 mmol/L (22-29); Chloride 102 mmol/L (98-107); Estimated GFR 112; Glucose 96 mg/dL (70-105); Magnesium 1.9 mg/dL (1.6-2.6); Phosphorus 3.7 mg/dL (2.3-4.7); Potassium 4.3 mmol/L (3.5-5.1); Sodium 133 mmol/L (136-145)
[2023-10-21] MEDS: Famotidine 20 MG TAB PO SCH ×2 (08:22→20:37)
[2023-10-21] MEDS: Famotidine/PF 20 mg/2ml Vial SLOW IVP SCH ×2 (08:22→20:37)
[2023-10-21] MEDS: Ketorolac Tromethamine 30 MG (1 mL) VIAL IVP PRN (12:29)
[2023-10-21 12:57] LABS: Hematocrit 30.7 % (36.0-47.0); Hemoglobin 10.1 g/dL (12.0-16.0)
[2023-10-21] MEDS ORDERED: Amino Acids 4.25 %/Dextrose 5% 1,000 ML IV SCH (17:00)
[2023-10-22] MEDS: Ketorolac Tromethamine 30 MG (1 mL) VIAL IVP PRN ×2 (05:13→17:36)
[2023-10-22] MEDS: Sodium Chloride 0.9% 1,000 ML IV SCH ×2 (05:15→14:14)
[2023-10-22] MEDS: Famotidine 20 MG TAB PO SCH ×2 (09:56→22:07)
[2023-10-22] MEDS: Famotidine/PF 20 mg/2ml Vial SLOW IVP SCH ×2 (09:56→22:07)
[2023-10-22 10:22] LABS: #Eosinphils 0.3 thou/uL (0.0-0.7); #Monocytes 0.9 thou/uL (0.11-0.59); #Neutrophils 4.9 thou/uL (1.40-6.50); %Basophils 0.1 % (0.0-1.0); %Eosinophils 4.3 % (0.0-10.0); %Lymphocytes 18.4 % (21.0-51.0); %Monocytes 11.7 % (0.0-10.0); %Neutrophils 65.1 % (42.0-75.0); Hematocrit 28.8 % (36.0-47.0); Hemoglobin 9.6 g/dL (12.0-16.0); Mean Corpuscular HGB CONC 33.3 g/dL (32.0-36.0); Mean Corpuscular Hemoglobin 29.6 pg (27.0-31.0); Mean Corpuscular Volume 88.9 fl (78.0-98.0); Mean Platelet Volume 10.7 fL (7.4-10.4); Platelet Count 436 10x3/uL (130-400); RBC Distribution Width 12.7 % (11.5-14.5); Red Blood Cell (RBC) Count 3.24 mill/uL (4.20-5.40); White Blood Cell (WBC) Count 7.6 10x3/uL (4.8-10.8)
[2023-10-22 10:48] LABS: Anion Gap 16 mmol/L (10-20); BUN (Urea Nitrogen) 12 mg/dL (9.8-20.1); Calc. Creatinine Clearance 113 mL/min (70-130); Calcium 8.9 mg/dL (7.8-10.44); Carbon Dioxide 23 mmol/L (22-29); Chloride 103 mmol/L (98-107); Estimated GFR 109; Glucose 94 mg/dL (70-105); Magnesium 1.9 mg/dL (1.6-2.6); Potassium 4.2 mmol/L (3.5-5.1); Sodium 138 mmol/L (136-145)
[2023-10-22 10:55] LABS: Phosphorus 4.7 mg/dL (2.3-4.7)
[2023-10-22] MEDS ORDERED: Multivitamins, Adult 10 ML, TRACE ELEMENT CONCENTRATE 1 ML in D15W-AA 5% with Lytes 2,0... IV SCH (14:00)
[2023-10-22] MEDS: fentaNYL 50 mcg/mL 1 mL Vial SLOW IVP PRN (22:06)
[2023-10-22] MEDS: Ondansetron PF 4 MG/2 ML Vial IVP PRN (22:06)
[2023-10-23] MEDS: Sodium Chloride 0.9% 1,000 ML IV SCH ×3 (01:02→20:39)
[2023-10-23] MEDS: traMADol HCl 50 MG TAB PO PRN ×2 (01:13→08:59)
[2023-10-23 05:40] LABS: Hematocrit 29.2 % (36.0-47.0); Hemoglobin 9.6 g/dL (12.0-16.0); Manual Diff?? YES; Mean Corpuscular HGB CONC 32.9 g/dL (32.0-36.0); Mean Corpuscular Hemoglobin 29.1 pg (27.0-31.0); Mean Corpuscular Volume 88.5 fl (78.0-98.0); Mean Platelet Volume 10.6 fL (7.4-10.4); Platelet Count 466 10x3/uL (130-400); RBC Distribution Width 12.5 % (11.5-14.5); White Blood Cell (WBC) Count 6.4 10x3/uL (4.8-10.8)
[2023-10-23 06:01] LABS: Delete Auto Diff?? YES
[2023-10-23 06:11] LABS: Anion Gap 11 mmol/L (10-20); BUN (Urea Nitrogen) 13 mg/dL (9.8-20.1); Calc. Creatinine Clearance 111 mL/min (70-130); Calcium 8.8 mg/dL (7.8-10.44); Carbon Dioxide 25 mmol/L (22-29); Chloride 104 mmol/L (98-107); Estimated GFR 109; Glucose 100 mg/dL (70-105); Magnesium 1.9 mg/dL (1.6-2.6); Potassium 4.2 mmol/L (3.5-5.1); Sodium 136 mmol/L (136-145)
[2023-10-23 06:13] LABS: Phosphorus 4.4 mg/dL (2.3-4.7)
[2023-10-23 07:24] LABS: Eosinophils 5 % (0-10); Lymphocytes 25 % (21-51); Monocytes 8 % (0-10); Neutrophil 60 % (42-75); Platelet Adequacy Comment Platelets Increased; Polychromasia SLIGHT = 2-3 cells (100X) (0-2/hpf); Reactive Lymphocytes 2 % (0-10)
[2023-10-23] MEDS: Famotidine/PF 20 mg/2ml Vial SLOW IVP SCH ×2 (08:57→20:39)
[2023-10-23] MEDS: Famotidine 20 MG TAB PO SCH ×2 (09:02→20:38)
[2023-10-23] MEDS: Ketorolac Tromethamine 30 MG (1 mL) VIAL IVP PRN ×2 (13:46→20:38)
[2023-10-23] MEDS ORDERED: Multivitamins, Adult 10 ML, TRACE ELEMENT CONCENTRATE 1 ML in D15W-AA 5% with Lytes 2,0... IV SCH (14:00)
[2023-10-24] MEDS: Ketorolac Tromethamine 30 MG (1 mL) VIAL IVP PRN (03:22)
[2023-10-24] MEDS: Sodium Chloride 0.9% 1,000 ML IV SCH ×2 (04:59→11:46)
[2023-10-24] MEDS: Famotidine/PF 20 mg/2ml Vial SLOW IVP SCH (09:55)
[2023-10-24] MEDS: Famotidine 20 MG TAB PO SCH ×2 (09:56→20:57)
[2023-10-24] MEDS ORDERED: Ibuprofen 200 MG TAB PO PRN (11:33)
[2023-10-25 08:14] VITALS: BP 103/68; TEMP 97.8
[2023-10-25] MEDS: Famotidine 20 MG TAB PO SCH (08:17)
== END 2023-10-25 10:43 | disposition home or self-care (01) | DRG 330 ==
LOC: SURG A 15:32
PROVIDERS: ADMIT Surgery; ATTEND Surgery
PROC: 0DTF4ZZ Resection of Right Large Intestine, Percutaneous Endoscopic Approach (ICD-10-PCS; principal; 2023-10-15)
PROC: 02HV33Z Insertion of Infusion Device into Superior Vena Cava, Percutaneous Approach (ICD-10-PCS; 2023-10-15)
PROC: B5181ZA Fluoroscopy of Superior Vena Cava using Low Osmolar Contrast, Guidance (ICD-10-PCS; 2023-10-15)
DX: C18.1 Malignant neoplasm of appendix (principal); K56.600 Partial intestinal obstruction, unspecified as to cause; K91.89 Other postprocedural complications and disorders of digestive system; K56.7 Ileus, unspecified; J45.909 Unspecified asthma, uncomplicated; K21.9 Gastro-esophageal reflux disease without esophagitis; J32.9 Chronic sinusitis, unspecified; F10.90 Alcohol use, unspecified, uncomplicated; F17.210 Nicotine dependence, cigarettes, uncomplicated; K59.00 Constipation, unspecified; Z90.49 Acquired absence of other specified parts of digestive tract; Z98.890 Other specified postprocedural states; Z90.710 Acquired absence of both cervix and uterus; Z80.0 Family history of malignant neoplasm of digestive organs; G89.18 Other acute postprocedural pain
CPT/HCPCS: 36415; 36416; 71045; 74018; 74177; 74250; 80048; 80053; 80061; 83690; 83735; 84100; 85025; 85730; 88307; 88341; 88342; 93005; 96374; 96375; A4314; A4649; C1751; J0694; J1100; J1170; J1885; J2001; J2270; J2405; J2704; J3010; J3480; J3490; J7030; J7050; Q9967; S0020; S0028

== ENCOUNTER 2023-12-08 09:33 | Outpatient (CLI) | payer BC ==
[2023-12-08] MEDS ORDERED: Iopamidol-370 76% 500 ML MDV (1 ML CHARGE) ONE (10:30)
== END 2023-12-08 09:34 | disposition home or self-care (01) ==
LOC: BICCT 09:33
PROVIDERS: ATTEND Internal Medicine
DX: C18.9 Malignant neoplasm of colon, unspecified (principal); K76.9 Liver disease, unspecified; N20.0 Calculus of kidney; Z90.49 Acquired absence of other specified parts of digestive tract
CPT/HCPCS: 71260; 74177; Q9967

== ENCOUNTER 2023-12-22 13:27 | Outpatient (CLI) | payer BC | END 2023-12-22 13:28 | disposition home or self-care (01) | LOC: SCSMRI 13:27 | PROVIDERS: ATTEND Internal Medicine | DX: C18.2 Malignant neoplasm of ascending colon (principal); K76.9 Liver disease, unspecified; D18.03 Hemangioma of intra-abdominal structures | CPT/HCPCS: 74183 ==

== ENCOUNTER 2024-04-01 13:38 | Outpatient (CLI) | payer BC | END 2024-04-01 13:39 | disposition home or self-care (01) | LOC: BICCT 13:38 | PROVIDERS: ATTEND Internal Medicine | DX: C18.2 Malignant neoplasm of ascending colon (principal) | CPT/HCPCS: 71260; 74177; Q9967 ==

== ENCOUNTER 2024-08-18 15:14 | Outpatient (CLI) | payer BC | END 2024-08-18 15:15 | disposition home or self-care (01) | LOC: BICMAMMO 15:14 | PROVIDERS: ATTEND Physician Assistant | DX: Z12.31 Encounter for screening mammogram for malignant neoplasm of breast (principal); Z85.038 Personal history of other malignant neoplasm of large intestine | CPT/HCPCS: 77063; 77067 ==

== ENCOUNTER 2024-10-17 10:41 | Outpatient (CLI) | payer BC | END 2024-10-17 10:42 | disposition home or self-care (01) | LOC: BICMRI 10:41 | PROVIDERS: ATTEND Surgery | DX: M48.02 Spinal stenosis, cervical region (principal); M47.812 Spondylosis without myelopathy or radiculopathy, cervical region; M43.03 Spondylolysis, cervicothoracic region; M47.813 Spondylosis without myelopathy or radiculopathy, cervicothoracic region; M48.03 Spinal stenosis, cervicothoracic region; M50.23 Other cervical disc displacement, cervicothoracic region | CPT/HCPCS: 72050; 72141 ==

== ENCOUNTER 2025-06-06 07:38 | Outpatient (CLI) | payer BC ==
[2025-06-06] MEDS ORDERED: Iopamidol-370 76% 500 ML MDV (1 ML CHARGE) ONE (10:06)
== END 2025-06-06 07:39 | disposition home or self-care (01) ==
LOC: CT 07:38
PROVIDERS: ATTEND Internal Medicine
DX: C18.2 Malignant neoplasm of ascending colon (principal); D50.0 Iron deficiency anemia secondary to blood loss (chronic); N20.0 Calculus of kidney
CPT/HCPCS: 71260; 74177

== ENCOUNTER 2025-10-11 13:27 | Outpatient (CLI) | payer BC | END 2025-10-11 13:28 | disposition home or self-care (01) | LOC: BICMAMMO 13:27 | PROVIDERS: ATTEND Physician Assistant | DX: Z12.31 Encounter for screening mammogram for malignant neoplasm of breast (principal); Z85.038 Personal history of other malignant neoplasm of large intestine | CPT/HCPCS: 77063; 77067 ==